=== PATIENT | male | born 1995 | race Hispanic/Latino ===

== ENCOUNTER 2018-07-31 12:16 | Emergency (ER) | payer OTHER ==
--- NOTE | 2018-07-31 13:47 | RAD ---
CHEST 1 VIEW: HISTORY: Chest wall pain. COMPARISON: None. FINDINGS: Lungs are clear. No pneumothorax or effusion. Cardiac silhouette and mediastinal contours are withi n normal limits. No acute osseous abnormality. IMPRESSION: No acute intrathoracic abnormality. POS: [id number]
== END 2018-07-31 13:48 | disposition home or self-care (01) ==
LOC: ERS 12:16
DX: R07.89 Other chest pain (principal); F43.9 Reaction to severe stress, unspecified; F41.1 Generalized anxiety disorder; Z87.891 Personal history of nicotine dependence
CPT/HCPCS: 71045; 93005